=== PATIENT | female | born 1960 | race Caucasian/White ===

== ENCOUNTER 2016-08-27 23:49 | Emergency (ER) | payer MEDICAID ==
[2016-08-27 23:56] VITALS: PULSE 85; RESP 18; TEMP 98.1; O2SAT 98
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
[2016-08-28] MEDS ORDERED: LISINOPRIL 20 MG TAB PO ONE (00:37)
[2016-08-28 00:47] VITALS: BP 188/95
== END 2016-08-28 00:47 | disposition home or self-care (01) ==
DX: I10 Essential (primary) hypertension (principal)

== ENCOUNTER 2017-09-11 21:34 | Emergency (ER) | payer MEDICAID ==
[2017-09-11] MEDS ORDERED: IBUPROFEN 600 MG TAB PO ONE ×2 (22:00→22:01)
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
[2017-09-11 23:07] VITALS: BP 177/108
== END 2017-09-11 23:10 ==
LOC: EDUNIT#
DX: I10 Essential (primary) hypertension (principal); G89.29 Other chronic pain